=== PATIENT | female | born 1995 | race Caucasian/White ===

== ENCOUNTER 2016-12-17 20:29 | Emergency (ER) | payer SELFPAY ==
[~2016-12-17] VITALS: Ht 154.9 cm; Wt 63.6 kg
[2016-12-17 20:39] VITALS: Ht 154.9 cm; Wt 63.6 kg
[2016-12-17] MEDS ORDERED: ALBUTEROL 0.083% (NEB) 2.5 MG/3 ML AMP HHN STA (21:07)
[2016-12-17] MEDS ORDERED: DEXAMETHASONE 10 MG/ML 1 ML INJ IM ONE (21:30)
[2016-12-17] MEDS ORDERED: IPRATROPIUM (NEB) 0.5 MG/2.5 ML AMP HHN ONE (21:30)
--- NOTE | 2016-12-17 21:40 | ERD ---
ER Documentation Chief Complaint Date/Time DATE: 12/17/16 TIME: 21:33 Chief Complaint COUGH, SOB WHEN WALKING SINCE YESTERDAY HPI This patient is a 21-year-old female presenting to the emergency department with complaints of cough and shortness of breath worse when walking which started yesterday. Symptoms have been constant. Symptoms have improved since yesterday. She also has noticed wheezing. She had similar symptoms 1 month ago and a self resolved. She denies history of asthma or cough. No fevers reported. No other symptoms to report currently. ROS All systems reviewed and are negative except as per history of present illness. Medications Home Meds Active Scripts Albuterol Sulfate* (Ventolin HFA*) 18 Gm Hfa.aer.ad, 2 PUFF INHALATION Q4H, #1 INHALER Prov:VIKRAM COLE PA-C 12/17/16 Prednisone* (Prednisone*) 20 Mg Tab, 40 MG PO DAILY for 4 Days, #8 TAB Prov:VIKRAM COLE PA-C 12/17/16 Allergies Allergies: Coded Allergies: No Known Allergy (Unverified , 12/17/16) PMhx/Soc Medical and Surgical Hx: pt denies Medical Hx, pt denies Surgical Hx Hx Alcohol Use: No Hx Substance Use: No Hx Tobacco Use: No Smoking Status: Never smoker Physical Exam Vitals Vital Signs Date Time Temp Pulse Resp B/P Pulse Ox O2 Delivery O2 Flow Rate FiO2 12/17/16 22:48 98.6 103 22 115/60 99 Room Air 12/17/16 21:58 106 32 98 21 12/17/16 20:39 98.7 110 20 154/77 96 Physical Exam Const: Nontoxic, well-appearing female in no acute distress. Head: Atraumatic Eyes: Normal Conjunctiva ENT: Normal External Ears, Nose and Mouth. Neck: Full range of motion..~ No meningismus. Resp: Shallow inspiratory effort. Inspiratory wheezing noted to bilateral upper lung patel. No crackles noted. Cardio: Regular rate and rhythm, no murmurs Abd: Soft, non tender, non distended. Normal bowel sounds Skin: No petechiae or rashes Back: No midline or flank tenderness Ext: No cyanosis, or edema Neur: Awake and alert Psych: Normal Mood and Affect Results 24 hrs Current Medications Medications (Trade) Dose Ordered Sig/Ricardo Route PRN Reason Start Time Stop Time Status Last Admin Dose Admin Dexamethasone (Decadron) 10 mg ONCE ONCE IM 12/17/16 21:30 12/17/16 21:31 DC 12/17/16 21:41 Albuterol (Proventil 0.083% (Neb)) 5 mg ONCE STAT HHN 12/17/16 21:07 12/17/16 21:10 DC 12/17/16 21:49 Ipratropium [place] (Atrovent 0.02% (Neb)) 0.5 mg ONCE ONCE HHN 12/17/16 21:30 12/17/16 21:31 DC 12/17/16 21:50 Procedures/MDM This patient is a 21-year-old female presenting to the emergency department with complaints of shortness of breath and wheezing. On exam the patient did have wheezing noted to bilateral upper lung patel but there are no signs of respiratory distress. Pulse ox is 96% on room air on presentation. The patient was given albuterol and ipratropium breathing treatment in the department and is feeling improved on reevaluation. The patient's pulse ox increased to 99% on room air prior to discharge. She was given IM Decadron. The patient did not want to wait for chest x-ray and she was made aware of the risks of leaving before having this test done. She is stable for outpatient management with a prescription for prednisone, Ventolin inhaler, and instruction to follow-up with her primary care physician in the next 24-48 hours. Strict ER return precautions were discussed. I have low suspicion for pneumothorax, status asthmaticus, acute respiratory distress syndrome, ulnar embolism, pneumonia, or other emergent conditions. Departure Diagnosis: Primary Impression: Shortness of breath Condition: Fair Patient Instructions: Uri, Viral W/ Wheezing (Adult) Referrals: [facility] Additional Instructions: Follow up with your PCP within the next 1-3 days for a repeat evaluation. If you require a referral to a specialist, your Primary Care Provider may be able to provide this for you. In most patient cases, a referral is not required. If you have further questions regarding this matter, please ask your Primary Care Provider. Return the the emergency department immediately if symptoms worsen or change. If you have any questions regarding medications, ask your pharmacist or us before you leave. If any adverse reactions, occur while taking your medications, discontinue the treatment and return to the emergency department immediately. If any new or worsening symptoms, uncontrolled fevers, or other unexplained symptoms occur, return to the emergency department immediately. Take your medications as directed, and complete the entire course of treatment. VIKRAM COLE PA-C Dec 17, 2016 21:39
[2016-12-17] MEDS ORDERED: ALBU18HF INHALATION (22:41)
[2016-12-17] MEDS ORDERED: PRED20TA PO (22:41)
[2016-12-17 22:48] VITALS: BP 115/60; PULSE 103; RESP 22; TEMP 98.6
== END 2016-12-17 22:50 | disposition home or self-care (01) ==
LOC: FTE 20:29
DX: R06.02 Shortness of breath (principal)
CPT/HCPCS: 94664; 96372; 99284; J1100

== ENCOUNTER 2017-06-28 18:47 | Emergency (ER) | END 2017-06-28 21:05 | disposition home or self-care (01) ==

== ENCOUNTER 2018-01-17 23:26 | Emergency (ER) | END 2018-01-18 03:29 | disposition home or self-care (01) ==

== ENCOUNTER 2018-03-15 15:11 | Emergency (ER) | END 2018-03-15 20:27 | disposition home or self-care (01) ==